=== PATIENT | male | born 1995 | race Hispanic/Latino ===

== ENCOUNTER → 2018-09-16 13:49 | Outpatient (REF) | payer OTHER, SELFPAY ==
[2018-09-16 17:12] LABS: Urine Chlamydia NOT DETECTED; Urine N gonorrhoeae NOT DETECTED
[2018-09-16 18:33] LABS: HIV 1 and 2 Antibody NEGATIVE (NEGATIVE); Hep C Virus Ab w/Reflex Quant NEGATIVE s/c (NEGATIVE)
== END ==
LOC: LAB 13:49
PROVIDERS: Visit Provider Family Medicine
DX: Z11.3 Encounter for screening for infections with a predominantly sexual mode of transmission (principal); Z11.4 Encounter for screening for human immunodeficiency virus [HIV]
CPT/HCPCS: 36415; 86696; 86703; 86780; 86803; 87491; 87591

== ENCOUNTER → 2019-01-17 13:54 | Outpatient (CLI) | payer OTHER, SELFPAY ==
--- NOTE | 2019-01-17 | DI.ECHO.S_ITS ---
[facility]---------+ [facility] +---------+ : : [address] : [place] : : : : [id number] : : : : Phone: [phone]+ Echocardiogram Report + + :Name: MILAD DOUGLAS Study Date: 01/17/2019 Height: 69 in : :[facility] Weight: 170 lb : : Gender: Male BSA: 1.9 m2 : :: 1995 Age: 23 yrs BP: 110/44 mmHg: :Reason For Study: QTC : : Performed By: Tamie Deleon : :Referring: JATINDER POSADA : + + Interpretation Summary 1) Normal left ventricular thickness, size, wall motion, and systolic function (EF 60-65%). 2) Mildly enlarged right ventricular size with low normal function. 3) No significant valvular abnormalities. 4) The right ventricular systolic pressure is estimated to be at least 26 mmHg based on an estimated right atrial pressure of 8 mm Hg. 5) No prior Echo available for comparison. Procedure: A two-dimensional transthoracic echocardiogram with color flow and Doppler was performed. The study quality was technically good. There is no prior echocardiogram noted for this patient. The heart rate ranged between 51- 52 bpm during the study. Left Ventricle: The left ventricle is normal in size, wall thickness, and systolic function without any focal wall motion abnormalities. The ejection fraction is estimated to be 60-65%. Diastolic parameters suggest probable normal left ventricular diastolic function and normal filling pressures. Right Ventricle: The right ventricle is mildly dilated. Right ventricular systolic function is at the lower limits of normal. Atria: The left atrial size is normal. The right atrium is mildly dilated. The interatrial septum is intact with no evidence for an atrial septal defect. Mitral Valve: The mitral valve is normal in structure and function. Aortic Valve: The aortic valve is trileaflet. The aortic valve opens well. There is no aortic valve stenosis. No aortic regurgitation is present. Tricuspid Valve: The tricuspid valve is normal in structure and function. There is a trace or physiologic amount of tricuspid regurgitation. The right ventricular systolic pressure is estimated to be at least 26 mmHg based on an estimated right atrial pressure of 8 mm Hg. Pulmonic Valve: The pulmonic valve is not well seen, but is grossly normal. There is mild pulmonic regurgitation. Great Vessels: The aortic root is normal size. The dimensions of the ascending aorta are normal. The IVC is dilated (diameter is greater than 2.1 cm) yet it collapses greater than 50% with a sniff. This suggests a right atrial pressure of 8 mm Hg. Pericardium/ Pleura There is no pericardial effusion. There is no pleural effusion. MMode/2D Measurements & Calculations LVIDd: 5.4 cm Ao root diam: 2.9 cm LVIDs: 3.6 cm Aortic Jxn: 2.2 cm FS: 33.5 % asc Aorta Diam: 2.6 cm IVSd: 0.96 cm Ao Arch Diam (Prox Trans): 2.3 cm LVPWd: 0.95 cm LV hunt. diameter/BSA (cm/m^2): 2.8 LV sys. diameter/BSA (cm/m^2): 1.9 LA dimension: 3.6 cm RA long axis: 5.5 cm LA A2 area: 21.1 cm2 RA area: 23.4 cm2 LA A4 area: 19.6 cm2 RA vol: 84.5 ml LA length (vol): 5.1 cm RA : 43.8 ml/m2 LA vol: 69.0 ml IVC diam: 2.1 cm LA vol index: 35.8 ml/m2 RVDd major: 7.0 cm RVD1 (basal): 3.6 cm RVD2 (mid): 2.8 cm Doppler Measurements & Calculations Ao V2 max: 142.1 cm/sec MV E max chase: 56.4 cm/sec Ao V2 mean: 92.5 cm/sec MV A max chase: 40.6 cm/sec Ao max P.1 mmHg MV E/A: 1.4 Ao mean P.0 mmHg Med Peak E' Chase: 10.4 cm/sec Ao V2 VTI: 28.7 cm E/E' med: 5.4 Lat Peak E' Chase: 14.9 cm/sec E/E' lat: 3.8 E/e' average: 4.6 MV dec time: 0.16 sec MV P1/2t: 49.3 msec TR max chase: 211.7 cm/sec MV P1/2t max chase: 56.0 cm/sec TR max P.9 mmHg MVA(P1/2t): 4.5 cm2 PA V2 max: 85.6 cm/sec PA V2 mean: 56.5 cm/sec PA mean P.5 mmHg PA Accel Time: 0.19 sec Reading Physician:03:27 PM
== END ==
PROVIDERS: PCP Family Medicine; Visit Provider Physician Assistant
DX: I37.1 Nonrheumatic pulmonary valve insufficiency (principal); R07.9 Chest pain, unspecified
CPT/HCPCS: 93306